=== PATIENT | male | born 1990 | race Caucasian/White ===

== ENCOUNTER 2020-10-09 11:44 | Emergency (ER) | payer OTHER ==
[2020-10-09 12:24] LABS: ABSOLUTE EOSINOPHILS # (AUTO) 0.1 10^3/uL (0.0-0.6); ABSOLUTE LYMPHOCYTES (AUTO) 1.6 10^3/uL (0.5-4.7); ABSOLUTE MONOCYTES (AUTO) 1.2 10^3/uL (0.1-1.4); ABSOLUTE NEUT (AUTO) 13.7 10^3/uL (1.7-8.2); BASOPHILS % (AUTO) 0.2 % (0-2); EOSINOPHILS % (AUTO) 0.3 % (0-6); HEMOGLOBIN 14.5 g/dL (13.5-17.0); LYMPHOCYTES % (AUTO) 9.8 % (13-45); MEAN CORPUSCULAR HEMOGLOBIN 29.8 pg (27.0-33.4); MEAN CORPUSCULAR HGB CONC 34.6 g/dL (32.0-36.0); MEAN CORPUSCULAR VOLUME 86 fl (80-97); MONOCYTES % (AUTO) 7.2 % (3-13); PLATELET COUNT 308 10^3/uL (150-450); RED BLOOD COUNT 4.87 10^6/uL (4.35-5.55); RED CELL DISTRIBUTION WIDTH 12.7 % (11.5-14.0); SEGMENTED NEUTROPHILS % (AUTO) 82.5 % (42-78); TOTAL CELLS COUNTED % (AUTO) 100 %; WHITE BLOOD COUNT 16.7 10^3/uL (4.0-10.5)
[2020-10-09 12:45] LABS: ALKALINE PHOSPHATASE 55 U/L (38-126); ANION GAP 6 (5-19); ASPARTATE AMINO TRANSFERASE 26 U/L (17-59); BILIRUBIN,TOTAL 0.7 mg/dL (0.2-1.3); BLOOD UREA NITROGEN 19 mg/dL (7-20); CALCIUM 9.2 mg/dL (8.4-10.2); CARBON DIOXIDE 27 mmol/L (22-30); CHLORIDE 108 mmol/L (98-107); GLUCOSE 103 mg/dL (75-110); POTASSIUM 3.6 mmol/L (3.6-5.0); TOTAL PROTEIN 7.2 g/dL (6.3-8.2)
[2020-10-09 12:46] LABS: ACETAMINOPHEN < 10 ug/mL (10-30); ALCOHOL < 10 mg/dL (NONE DETECTED); SALICYLATE < 1.0 mg/dL (2.0-20.0)
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
--- NOTE | 2020-10-09 13:22 | RADIOLOGY REPORT (SQ) ---
EXAM DESCRIPTION: CT HEAD WITHOUT IMAGES COMPLETED DATE/TIME: 10/09/2020 1:12 pm REASON FOR STUDY: head injury COMPARISON: None. TECHNIQUE: Axial images acquired through the brain without intravenous contrast. Images reviewed wi th bone, brain and subdural windows. Additional sagittal and coronal reconstructions were generated. Images stored on PACS. All CT scanners at this facility use dose modulation, iterative reconstruction, and/or weight based d osing when appropriate to reduce radiation dose to as low as reasonably achievable (ALARA). [facility]: Dose Right [facility]: CareDose [facility]: Dose Right [facility]: Teradose 4D [facility]: Smart [employer] RADIATION DOSE: CT Rad equipment meets quality standard of care and radiation dose reduction techniq ues were employed. CTDIvol: 55.2 mGy. DLP: 1029 mGy-cm. mGy. LIMITATIONS: None. FINDINGS: VENTRICLES: Normal size and contour. CEREBRUM: No masses. No hemorrhage. No midline shift. No evidence for acute infarction. Normal gra y/white matter differentiation. No areas of low density in the white matter. CEREBELLUM: No masses. No hemorrhage. No alteration of density. No evidence for acute infarction. EXTRAAXIAL SPACES: No fluid collections. No masses. ORBITS AND GLOBE: No intra- or extraconal masses. Normal contour of globe without masses. CALVARIUM: No fracture. PARANASAL SINUSES: No fluid or mucosal thickening. SOFT TISSUES: No mass or hematoma. OTHER: No other significant finding. IMPRESSION: NORMAL BRAIN CT WITHOUT CONTRAST. EVIDENCE OF ACUTE STROKE: NO. COMMENT: Quality ID # [id number]: Final reports with documentation of one or more dose reduction techniques (e.g., Automated exposure control, adjustment of the mA and/or kV according to patient size, use of iterative reconstruction technique) TECHNICAL DOCUMENTATION: JOB ID: [id number] 2010 [employer]- All Rights Reserved Reading location - IP/workstation name: [email or web address]
--- NOTE | 2020-10-09 13:24 | RADIOLOGY REPORT (SQ) ---
EXAM DESCRIPTION: CT CERVICAL SPINE WITHOUT IMAGES COMPLETED DATE/TIME: 10/09/2020 1:12 pm REASON FOR STUDY: head injury COMPARISON: None. TECHNIQUE: Axial images acquired through the cervical spine without intravenous contrast. Images re viewed with lung, soft tissue and bone windows. Reconstructed coronal and sagittal MPR images review ed. Images stored on PACS. All CT scanners at this facility use dose modulation, iterative reconstruction, and/or weight based d osing when appropriate to reduce radiation dose to as low as reasonably achievable (ALARA). [facility]: Dose Right [facility]: CareDose [facility]: Dose Right [facility]: Teradose 4D [facility]: Smart [employer] RADIATION DOSE: CT Rad equipment meets quality standard of care and radiation dose reduction techniq ues were employed. CTDIvol: 17.1 mGy. DLP: 393 mGy-cm. mGy. LIMITATIONS: None. FINDINGS: ALIGNMENT: Anatomic. MINERALIZATION: Normal. VERTEBRAL BODIES: No fractures or dislocation. DISCS: No significant disc disease. FACETS, LATERAL MASSES, POSTERIOR ELEMENTS: No fractures. No dislocation. No acute findings. HARDWARE: None in the spine. VISUALIZED RIBS: No fractures. LUNG APICES AND SOFT TISSUES: No significant or acute findings. OTHER: No other significant finding. IMPRESSION: NO ACUTE OR SIGNIFICANT FINDINGS IN THE CERVICAL SPINE. TECHNICAL DOCUMENTATION: JOB ID: [id number] Quality ID # [id number]: Final reports with documentation of one or more dose reduction techniques (e.g., Au tomated exposure control, adjustment of the mA and/or kV according to patient size, use of iterative reconstruction technique) 2010 [employer]- All Rights Reserved Reading location - IP/workstation name: [email or web address]
[2020-10-09 15:37] LABS: VENOUS BLOOD HCO3 24.5 mmol/L (20-32); VENOUS BLOOD PCO2 48.4 mmHg (35-63); VENOUS BLOOD PH 7.32 (7.30-7.42)
--- NOTE | 2020-10-09 16:30 | RADIOLOGY REPORT (SQ) ---
EXAM DESCRIPTION: CHEST SINGLE VIEW IMAGES COMPLETED DATE/TIME: 10/09/2020 4:13 pm REASON FOR STUDY: suicidal ideation COMPARISON: None. EXAM PARAMETERS: NUMBER OF VIEWS: One view. TECHNIQUE: Single frontal radiographic view of the chest acquired. RADIATION DOSE: NA LIMITATIONS: None. FINDINGS: LUNGS AND PLEURA: No opacities, masses or pneumothorax. No pleural effusion. MEDIASTINUM AND HILAR STRUCTURES: No masses. Contour normal. HEART AND VASCULAR STRUCTURES: Heart normal in size. Normal vasculature. BONES: No acute findings. HARDWARE: None in the chest. OTHER: No other significant finding. IMPRESSION: NO ACUTE RADIOGRAPHIC FINDING IN THE CHEST. TECHNICAL DOCUMENTATION: JOB ID: [id number] 2010 [employer]- All Rights Reserved Reading location - IP/workstation name: [email or web address]
[2020-10-09] MEDS ORDERED: KETOROLAC TROMETHAMINE INJ/PF 30 MG/1 ML SDV IV ONE (18:04)
[2020-10-09 20:07] LABS: APPEARANCE,URINE SLIGHTLY-CLOUDY; BILIRUBIN,URINE NEGATIVE (NEGATIVE); COLOR,URINE YELLOW; GLUCOSE, URINE NEGATIVE (NEGATIVE); KETONES,URINE NEGATIVE (NEGATIVE); LEUKOCYTE ESTERASE,URINE NEGATIVE (NEGATIVE); NITRITE,URINE NEGATIVE (NEGATIVE); PROTEIN,URINE 30 mg/dL (NEGATIVE); URINE SPECIFIC GRAVITY 1.021; UROBILINOGEN,URINE NEGATIVE mg/dL (<2.0)
[2020-10-09 20:14] LABS: URINE BARBITURATES SCREEN NEGATIVE; URINE COCAINE SCREEN NEGATIVE; URINE METHADONE SCREEN NEGATIVE; URINE PHENCYCLIDINE SCREEN NEGATIVE
[2020-10-09 20:23] LABS: URINE BENZODIAZEPINES SCREEN UNCONFIRMED POSITIVE; URINE MARIJUANA (THC) SCREEN UNCONFIRMED POSITIVE
--- NOTE | 2020-10-09 21:05 | EKG REPORT ---
SEVERITY:- BORDERLINE ECG - SINUS RHYTHM BORDERLINE T ABNORMALITIES, ANT- LEADS : Confirmed by: Jas Michael MD 09-Oct-2020 21:05:11
[2020-10-09] MEDS ORDERED: LORAZEPAM 1 MG TABLET PO ONE (22:06)
[2020-10-09] MEDS ORDERED: OLANZAPINE 2.5 MG TABLET PO SCH (23:15)
[2020-10-09] MEDS ORDERED: CLONIDINE HCL 0.2 MG TABLET PO ONE (23:15)
[2020-10-09] MEDS ORDERED: VENLAFAXINE HCL 37.5 MG CAP.SR.24H PO SCH (23:15)
[2020-10-09] MEDS: OLANZAPINE 2.5 MG TABLET PO SCH (23:39)
[2020-10-09] MEDS: VENLAFAXINE HCL 37.5 MG CAP.SR.24H PO SCH (23:41)
[2020-10-09] MEDS: CLONIDINE HCL 0.2 MG TABLET PO SCH (23:44)
[2020-10-10] MEDS: VENLAFAXINE HCL 37.5 MG CAP.SR.24H PO SCH ×2 (10:28→18:31)
[2020-10-10] MEDS: OLANZAPINE 2.5 MG TABLET PO SCH ×2 (10:28→18:32)
--- NOTE | 2020-10-10 14:03 | ER Document Report ---
Doctor's Note Notes: 10/10/20 14:02 Patient resting quietly in the room in no distress. Have spoken with Sophia from the psychiatric team. Patient will be accepted at [facility] pending a rapid Covid test being negative
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
--- NOTE | 2020-10-10 20:39 | PSYCHOLOGICAL NOTE ---
Psych Note - Psych Note Date seen by psych provider: 10/09/20 Time seen by psych provider: 18:36 Psych Note: Reason for Consult: suicidal ideation [id number] Patient is a 29 year old male who was admitted to the ED via EMS and petitioned for IVC for to suicidal ideation. Patient denies suicidal and homicidal ideation, plan, and intent. He notes he wants his ex- , however does not plan to hurt, harm or kill her. He reports she took his kids away and he c annot see them. Patient reports separation from his in June 2018 and his divorce was finalized on April 27, 2020. He reports this evening his fianc told him she does not love him. He reports he is very anxious and when he becomes anxious, it triggers his PTSD symptoms. He reports he cant be stopped. Patient reports memory impairments and states he was told he has pre onset Alzheimers. Patient reports being prescribed Fluoxetine, however it made him feel like a zombie and he has not been taking medication for a week. He reports substance use to include using speed (last use last night) and THC. Patient denies family history of mental health. Collateral: Chester, friend, [phone] He denies concerns for safety. He states he is not as close with patient as others, but he reports stressors with his fianc. He states patient and fianc often have arguments, but patient is not physical. He denies history of suicide attempts for patient that he is aware of. 1252 [facility] Start[facility] Flu[facility] in July and has not refilled it, 10mg 2 capsules every morning; 20mg total. He is service connected for PTSD. Patient was last seen said he was taking Prozac, but did not want to increase to not become dependent. He has reported the only thing that keeps him calm is weed. If he cannot calm down he reaches black out stages; cannot recall. Patient has severe shoulder pain limits him from doing the kind of jobs he likes to do. He does have anxiety that triggers the PTSD symptoms. Night terrors a couple of times a month. Patient has young adult trauma, friends lost. He has a TBI, not related. Patient was medically retired February 2020 from the [employer]. 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 Patient has no history of inpatient hospitalizations or suicide attempts. He reportedly smokes marijuana 1-2 times a day at night. He last saw a psychiatric nurse practitioner for the OR on 08/03/2020. Patient was alert and oriented to self, person, place, time and situation. Mood was euphoric with congruent affect. He denies current suicidal and homicidal ideation, plan, and intent. Patient did not appear to be responding to internal stimuli as evidenced by fair eye contact and answering questions appropriately when addressed. Thought processes are linear and organized. Conversational sp eech was within normal limits for rate, tone and prosody. Intellectual abilities are estimated to be average. Insight and judgment are fair as evidenced by explaining what took place and acknowledging behaviors were erratic and impulse control was poor as evidenced by substance use and property destruction in his home. Patient engages appropriately. Clinical Presentation: suicidal ideations IVC Criteria per [facility] 122C Dangerous to others Within the relevant past the individual No has inflicted or attempted to inflict or threatened to inflict serious bodily harm on another AND No that there is a reasonable probability that this conduct will be repeated. OR No has acted in such a way as to create a substantial risk of serious bodily harm to another AND No that there is a reasonable probability that this conduct will be repeated. OR No has engaged in extreme destruction of property AND NO that there is a reasonable probability that this conduct will be repeated. Previous episodes of dangerousness to others, when applicable, may be considered when determining reasonable probability of future dangerous conduct. Clear, cogent, and convincing evidence that an individual has committed a homicide in the relevant past is prima facie evidence of dangerousness to others. Dangerous to self Within the relevant past the individual has done any of the following: acted in such a way as to show ALL of the following: No The individual would be unable without care, supervision, and the continued assistance of others not otherwise available, to exercise self- control, judgment, and discretion in the conduct of the individual's daily responsibilities and social relations or to satisfy the individual's need for nourishment, personal or medical care, care home, or self-protection and safety. AND No There is a reasonable probability of the individual suffering serious physical debilitation within the near future unless adequate treatment is given. A showing of behavior that is grossly irrational, of actions that the individual is unable to control, of behavior that is grossly inappropriate to the situation, or of other evidence of severely impaired insight and judgment shall create a prima facie inference that the individual is unable to care for himself or herself. OR Yes has attempted suicide or threatened suicide He made SI statements with law enforcement and EMS on scene AND Yes that there is a reasonable probability of suicide unless adequate treatment is given Patient is non compliant with psychiatric medications; he has a significant history of PTSD and anxiety and is not involved in therapy and medications were not working for him. He has multiple stressors in his life and due to substance use and impulse control issues, it is uncertain how patient will continue to cope with stress. OR No has mutilated himself or herself or attempted to mutilate himself or herself AND No that there is a reasonable probability of serious self-mutilation unless adequate treatment is given. NOTE: Previous episodes of dangerousness to self, when applicable, may be considered when determining reasonable probability of physical debilitation, suicide, or self-mutilation. Medication recommendations per [facility] contracted psychiatrist, Dr. Fabiana HANDLEY, are as follows: discontinue Fluoxetine; start Effexor 37.5mg twice daily, Clonidine 0.2mg at night, and Zyprexa 2.5mg twice daily Impression\plan: Patient is currently under full IVC, however will be re- evaluated in the morning. He continues to deny suicidal ideations, however there is significant concern for his safety and further information is needed. Patient reports impulsive behaviors, illegal substance use, access to guns, and multiple stressors in his life. He has a significant history of PTSD and anxiety and is not compliant with medication management. Dr. Mejía was consulted to care management of this patient; attending physicians in agreement with recommendations and disposition.
[2020-10-10] MEDS: CLONIDINE HCL 0.2 MG TABLET PO SCH (21:42)
[2020-10-10] MEDS ORDERED: NORMAL SALINE 1000 ML 1,000 ML IV ONE (23:05)
[2020-10-11] MEDS ORDERED: NORMAL SALINE 1000 ML 1,000 ML IV ONE (01:35)
--- NOTE | 2020-10-11 07:48 | ER Document Report ---
Doctor's Note Notes: Nursing staff notified me of patient's blood pressure being low. This was rechecked and patient continued to be hypotensive. He was resting in the stretcher, sleepy but easily arousable. He denied any chest pain, shortness of breath. Skin warm and dry. IV fluids ordered. Patient's blood pressure came up nicely after a 2 L fluid bolus. No indication for further work-up at this time. IV saline lock will remain in place until patient is discharged.
--- NOTE | 2020-10-11 08:43 | ER Document Report ---
Doctor's Note Notes: 10/11/20 08:43 Patient is sleeping in the bed at this time. He does arouse to verbal stimulation. Awaiting transfer to [facility] at this time
[2020-10-11 09:06] VITALS: BP 90/43
== END 2020-10-11 09:18 | disposition other institution (70) ==
LOC: ER 11:44
DX: Z04.6 Encounter for general psychiatric examination, requested by authority (principal); T58.02XA Toxic effect of carbon monoxide from motor vehicle exhaust, intentional self-harm, initial encounter; Y92.008 Other place in unspecified non-institutional (private) residence as the place of occurrence of the external cause; S01.81XA Laceration without foreign body of other part of head, initial encounter; X58.XXXA Exposure to other specified factors, initial encounter; I95.9 Hypotension, unspecified; F41.9 Anxiety disorder, unspecified; F43.10 Post-traumatic stress disorder, unspecified; T43.226A Underdosing of selective serotonin reuptake inhibitors, initial encounter; Z91.128 Patient's intentional underdosing of medication regimen for other reason; R41.0 Disorientation, unspecified; F51.4 Sleep terrors [night terrors]; R45.1 Restlessness and agitation; F17.200 Nicotine dependence, unspecified, uncomplicated; Z63.5 Disruption of family by separation and divorce; Z63.0 Problems in relationship with spouse or partner; Z75.1 Person awaiting admission to adequate facility elsewhere; Z20.828 Contact with and (suspected) exposure to other viral communicable diseases
CPT/HCPCS: 93005; 99285; 96361 ×3; 96374; 36415; 82375; 80307 ×4; 85025; 0241U ×4; 80053; 81001; 82803; 71045; 70450; 72125; 93010; J3490 ×4; J1885; J7030 ×2; C9803